=== PATIENT | female | born 2000 | race Caucasian/White ===

== ENCOUNTER 2021-05-13 11:11 | Emergency (ER) | payer BC, SELFPAY ==
--- NOTE | ~2021-05-13 | XR_ITS ---
EXAMINATION: XR chest 2V DATE: 05/13/2021 11:49 INDICATION: Hemoptysis. COVID-19 positive. TECHNIQUE: Frontal and lateral views of the chest were obtained. COMPARISON: None. FINDINGS: There is no pneumonia, pleural effusion, or pneumothorax. The heart size is normal. IMPRESSION: 1. No acute cardiopulmonary disease. Reviewed, dictated and finalized at location A. [employer]
[2021-05-13 11:20] VITALS: BP 112/97; PULSE 111; RESP 16; TEMP 36.5; O2SAT 100
--- NOTE | 2021-05-13 11:45 | ED.URI ---
HPI - URI/Sore Throat General Chief Complaint: Upper Respiratory Infection Stated Complaint: Positive covid test X 2 cough w/blood Time Seen by Provider: 05/13/21 11:35 Source: patient and RN notes reviewed Mode of arrival: ambulatory Limitations: no limitations History of Present Illness HPI Narrative: 21-year-old female presents with concern for coughing up blood. She reports she tested positive for Covid, symptoms started Saturday. She reports she has had fever, chills, cough, body aches, nasal congestion. Reports today she had blood in her sputum. Reports she has been taking ibuprofen. MD elicited complaint: cough Related Data Home Medications Medication Instructions Recorded Confirmed sertraline 100 mg PO DAILY 05/13/21 05/13/21 Allergies Allergy/AdvReac Type Severity Reaction Status Date / Time No Known Allergies Allergy Verified 05/13/21 11:22 Review of Systems Review of Systems: CONSTITUTIONAL: Reports malaise, chills, sweats, or fever. EYES: Denies visual changes, redness, or discharge. ENT: Reports rhinorrhea, congestion. Denies sinus pain, otalgia and sore throat. CARDIOVASCULAR: Denies chest pain, palpitations, or edema. RESPIRATORY: Reports productive blood-tinged cough. Denies dyspnea. GASTROINTESTINAL: Denies abdominal pain, nausea, vomiting, diarrhea SKIN: Denies rash or itching. MUSCULOSKELETAL: Reports myalgia. NEUROLOGIC: Denies headache. All systems reviewed & are unremarkable except as noted in HPI and below PMFSH Comments At time of signature, agree with nursing past medical, surgical, social and family history. There is no relevant family history pertinent to the presenting complaint Exam Narrative: GENERAL: Well-appearing, well-nourished, and in no acute distress. HEAD: Normocephalic EYES: PERRLA, conjunctivae clear ENT: Nares clear, clear discharge. Mucous membranes moist. TM pearly ortega with dull light reflex bilaterally; no tragal tenderness. NECK: Supple. No lymphadenopathy CHEST: Clear to auscultation, breath sounds equal. No wheezing, rhonchi, rales, or stridor. No respiratory distress, speaks in full sentences. HEART: Regular rate and rhythm. No murmur heard. SKIN: Warm, dry, no rash. NEURO: Alert and oriented x3. PSYCH: Normal mood and affect Course Course Emergency Course: Patient is aware of diagnosis, understands and agrees to treatment plan. Anticipatory guidance given. Patient agrees to follow-up as directed and is aware of reasons to seek care at the emergency department. Portions of this record may have been created with voice recognition software Level of Care: Express Care Visit Vital Signs Vital signs: Vital Signs Temperature 97.7 F 05/13/21 11:20 Pulse Rate 111 H 05/13/21 11:20 Respiratory Rate 16 05/13/21 11:20 Blood Pressure 112/97 H 05/13/21 11:20 Pulse Oximetry 100 05/13/21 11:20 Temperature 97.7 F 05/13/21 11:20 Pulse Rate 111 H 05/13/21 11:20 Respiratory Rate 16 05/13/21 11:20 Blood Pressure 112/97 H 05/13/21 11:20 Pulse Oximetry 100 05/13/21 11:20 Reviewed. MDM - URI/Sore Throat MDM Narrative Medical decision making narrative: Differential diagnosis considered: Freeman virus, strep pharyngitis, allergic rhinitis, upper respiratory tract infection, sinusitis, rhinosinusitis, nasopharyngitis. viral pharyngitis, otitis media, otitis externa, pneumonia, bronchitis, viral cough syndrome, viral syndrome, and influenza. Exam findings show no acute concerns or changes; patient is non-toxic appearing and is in no distress. Patient is appropriate for outpatient treatment and follow-up. Lab Data Attestation: I reviewed the patient's lab results. Imaging Data My impression: Images reviewed, interpreted by radiologist, agree, see report. Radiologist's impression: EXAMINATION: XR chest 2V DATE: 05/13/2021 11:49 INDICATION: Hemoptysis. COVID-19 positive. TECHNIQUE: Frontal and lateral views of the chest were obtained. COMPAR
== END 2021-05-13 12:23 | disposition home or self-care (01) ==
PROVIDERS: Emergency Provider Nurse Practitioner
DX: U07.1 COVID-19 (principal); F41.9 Anxiety disorder, unspecified
CPT/HCPCS: 71046; 99213; G0463